=== PATIENT | female | born 1980 | race African-American/Black ===

== ENCOUNTER 2017-11-18 07:16 | Emergency (ER) | payer OTHER ==
[2017-11-18] MEDS ORDERED: LABETALOL HCL INJ 20 MG/4 ML DISP.SYRIN IV ONE (07:46)
--- NOTE | 2017-11-18 07:52 | ER Document Report ---
ED General - General Mode of Arrival: Ambulatory Information source: Patient TRAVEL OUTSIDE OF THE [place] IN LAST 30 DAYS: No <CHRISTINA FUNEZ - Last Filed: 11/18/17 08:09> <CHELLE MARTIN - Last Filed: 11/18/17 10:54> - General Chief Complaint: Blood Pressure Problem Stated Complaint: NOSE BLEED Time Seen by Provider: 11/18/17 07:38 Notes: Patient is a 37 year old female, currently 12 weeks with HTN and a history of nose bleeds presents to the emergency department complaining of a nose bleed onset this morning. Patient states she woke up around 0630 and noticed blood coming out of the right nostril. She suspected her blood pressure was high due to having similar episodes in the past when her blood pressure was high. She states she did not take her blood pressure medication and proceeded to come straight to the ED. Patient is currently prescribed Labetalol, 800 mg twice daily. She states she was previously prescribed Hydralazine was told to discontinue 1 month ago due to . (CHRISTINA FUNEZ) - Related Data Allergies/Adverse Reactions: No Known Allergies Allergy (Verified 11/18/17 07:17) Past Medical History - General Information source: Patient - Social History Smoking Status: Never Smoker Cigarette use (# per day): No Chew tobacco use (# tins/day): No Smoking Education Provided: No Frequency of alcohol use: None Family History: Reviewed & Not Pertinent - Past Medical History Cardiac Medical History: Reports: Hx Hypertension Past Surgical History: Reports: Hx Section, Other - reports surgery under her to remove a mass. <CHRISTINA FUNEZ - Last Filed: 11/18/17 08:09> Review of Systems - Review of Systems Constitutional: No symptoms reported EENT: See HPI Cardiovascular: No symptoms reported Respiratory: No symptoms reported Gastrointestinal: No symptoms reported Genitourinary: No symptoms reported Female Genitourinary: No symptoms reported Musculoskeletal: No symptoms reported Skin: No symptoms reported Hematologic/Lymphatic: See HPI Neurological/Psychological: No symptoms reported -: Yes All other systems reviewed and negative <CHRISTINA FUNEZ - Last Filed: 11/18/17 08:09> Physical Exam <CHRISTINA FUNEZ - Last Filed: 11/18/17 08:09> <CHELLE MARTIN - Last Filed: 11/18/17 10:54> - Vital signs Vitals: Temp Pulse Resp BP Pulse Ox 98.4 F 84 18 204/111 H 98 11/18/17 07:21 11/18/17 07:21 11/18/17 07:21 11/18/17 07:21 11/18/17 07:21 - Notes Notes: GENERAL: Alert, interacts well. No acute distress. HEAD: Normocephalic, atraumatic. EYES: Pupils equal, round, and reactive to light. Extraocular movements intact. ENT: Oral mucosa moist, tongue midline. Clot and fresh blood in the right nostril, not actively bleeding. NECK: Full range of motion. Supple. Trachea midline. LUNGS: Clear to auscultation bilaterally, no wheezes, rales, or rhonchi. No respiratory distress. HEART: Regular rate and rhythm. No murmurs, gallops, or rubs. ABDOMEN: Soft, non-tender. Non-distended. Bowel sounds present in all 4 quadrants. EXTREMITIES: Moves all 4 extremities spontaneously. NEUROLOGICAL: Alert and oriented x3. Normal speech. PSYCH: Normal affect, normal mood. SKIN: Warm, dry, normal turgor. No rashes or lesions noted. (CHRISTINA FUNEZ) Course - Laboratory Result Diagrams: 11/18/17 07:52 11/18/17 07:52 <CHRISTINA FUNEZ - Last Filed: 11/18/17 08:09> - Laboratory Result Diagrams: 11/18/17 07:52 11/18/17 07:52 - Consults Dr. Ching Time consulted: 08:00 Consulted provider: other - Recommended using a Apresoline(hydralazine) for blood pressure control, as the hospital does not have any of the labetalol. <CHELLE MARTIN - Last Filed: 11/18/17 10:54> - Re-evaluation Re-evalutation: 11/18/17 10:32 PROCEDURE: Afrin nose spray was sprayed into the right nostril, then two Afrin-soaked cotton balls were placed in the right nostril. Cotton balls were removed about 1-1/2 hours after the replaced, because I wanted to let the blood pressure come down and stay down for a while. There was minimal blood staining noted on either cottonball, there is no active bleeding, there was no blood going down the back of her throat during this time. Blood pressure is trending back up and she will be given her morning dose of labetalol which she did not take at home today. She will be reevaluated after the labetalol has been in for 30-45 minutes. (CHELLE MARTIN) - Vital Signs Vital signs: Temp Pulse Resp BP Pulse Ox 98.4 F 84 26 H 181/103 H 98 11/18/17 07:21 11/18/17 07:21 11/18/17 09:13 11/18/17 09:13 11/18/17 09:13 - Laboratory Laboratory results interpreted by sc: 11/18/17 07:52 Hgb 11.5 L Hct 32.8 L Discharge <CHRISTINA FUNEZ - Last Filed: 11/18/17 08:09> <CHELLE MARTIN - Last Filed: 11/18/17 10:54> - Discharge Clinical Impression: Anterior epistaxis, with 12 completed weeks gestation High blood pressure Qualifiers: Hypertension type: essential hypertension Qualified Code(s): I10 - Essential ( primary) hypertension Condition: Stable Disposition: HOME, SELF-CARE Additional Instructions: Nosebleed Instructions There is a significant chance of re-bleeding following a nosebleed. Proper care makes this less likely. Do not touch the nose for 24 hours. Do not blow the nose forcefully for one week. Gently apply Vaseline ointment to both nostrils with the tip of a finger, three times a day, for one week. It's normal to have a bloody mucous discharge for a few days. If active bleeding recurs, blow all the blood from the nose, then use the Afrin nose spray into the bleeding side, then placed an Afrin-soaked cotton ball into the bleeding nostril. Then sit quietly and pinch the nose as firmly as possible for 10 minutes. If this does not stop the bleeding, return for further care. If this does stop the bleeding, then remove the cotton ball after about 1 hour. Persons with frequent nosebleeds should avoid aspirin (unless prescribed for another reason). Humidity in the bedroom, and petroleum jelly applied to the nostrils at night may help. Your blood pressure was quite high today. You should check your blood pressure before you take your medicine in the morning and the evening to see if it is being controlled for the full 12 hours after a dose of medicine. You were given your morning dose of labetalol and the urgency room. Check your pressure later this afternoon to be sure it is staying controlled. Follow-up with your doctor if your pressure continues to run high. Follow-up with a local ear nose and throat doctor if you continue to have nosebleeds. RETURN TO THE EMERGENCY ROOM IF ANY NEW OR WORSENING SYMPTOMS. Referrals: [facility] [Provider Group] - Follow up as needed Scribe Attestation: 11/18/17 10:54 I personally performed the services described in the documentation, reviewed and edited the documentation which was dictated to the scribe in my presence, and it accurately records my words and actions. (CHELLE MARTIN) Scribe Documentation - Scribe Written by Scribe:: José Miguel Castillo, 11/18/2017 07:54 acting as scribe for :: Volodymyr <CHRISTINA FUNEZ - Last Filed: 11/18/17 08:09>
[2017-11-18] MEDS ORDERED: OXYMETAZOLINE HCL 0.05% NASAL SPRAY 15 ML BOTTLE NASL ONE (07:55)
[2017-11-18] MEDS ORDERED: HYDRALAZINE HCL INJ/PF 20 MG/1 ML SDV IV ONE (08:03)
[2017-11-18 08:16] LABS: ABSOLUTE BASOPHILS # (AUTO) 0.1 10^3/uL (0.0-0.2); ABSOLUTE EOSINOPHILS # (AUTO) 0.3 10^3/uL (0.0-0.6); ABSOLUTE MONOCYTES (AUTO) 0.7 10^3/uL (0.1-1.4); ABSOLUTE NEUT (AUTO) 5.7 10^3/uL (1.7-8.2); BASOPHILS % (AUTO) 0.7 % (0-2); HEMATOCRIT 32.8 % (36.0-47.0); HEMOGLOBIN 11.5 g/dL (12.0-15.5); LYMPHOCYTES % (AUTO) 23.1 % (13-45); MEAN CORPUSCULAR HEMOGLOBIN 30.9 pg (27.0-33.4); MEAN CORPUSCULAR HGB CONC 35.1 g/dL (32.0-36.0); MEAN CORPUSCULAR VOLUME 88 fl (80-97); MONOCYTES % (AUTO) 7.7 % (3-13); PLATELET COUNT 258 10^3/uL (150-450); RED BLOOD COUNT 3.73 10^6/uL (3.72-5.28); SEGMENTED NEUTROPHILS % (AUTO) 65.5 % (42-78); TOTAL CELLS COUNTED % (AUTO) 100 %; WHITE BLOOD COUNT 8.7 10^3/uL (4.0-10.5)
[2017-11-18 08:23] LABS: ALANINE AMINOTRANSFERASE 33 U/L (9-52); ALBUMIN 3.5 g/dL (3.5-5.0); ALKALINE PHOSPHATASE 63 U/L (38-126); ANION GAP 12 (5-19); ASPARTATE AMINO TRANSFERASE 19 U/L (14-36); BILIRUBIN,DIRECT 0.2 mg/dL (0.0-0.4); BILIRUBIN,TOTAL 0.3 mg/dL (0.2-1.3); BLOOD UREA NITROGEN 8 mg/dL (7-20); CALCIUM 9.8 mg/dL (8.4-10.2); CARBON DIOXIDE 26 mmol/L (22-30); CHLORIDE 102 mmol/L (98-107); GLUCOSE 95 mg/dL (75-110); SODIUM 140.3 mmol/L (137-145); TOTAL PROTEIN 7.1 g/dL (6.3-8.2)
[2017-11-18] MEDS ORDERED: LABETALOL HCL 200 MG TABLET PO ONE (10:24)
[2017-11-18 11:57] VITALS: BP 177/117
== END 2017-11-18 11:57 | disposition home or self-care (01) ==
LOC: ER 07:16
PROC: 2Y41X5Z Packing of Nasal Region using Packing Material (ICD-10-PCS; principal; 2017-11-18)
DX: O16.1 Unspecified maternal hypertension, first trimester (principal); R04.0 Epistaxis; Z3A.12 12 weeks gestation of pregnancy; Z79.899 Other long term (current) drug therapy
CPT/HCPCS: 99283; 96374; 36415; 83735; 85025; 80053; 30901; J0360; J3490

== ENCOUNTER 2018-04-07 08:31 | Emergency (ER) | payer OTHER, MEDICAID ==
[2018-04-07 08:43] VITALS: BP 145/80
--- NOTE | 2018-04-07 09:09 | ER Document Report ---
ED General - General Chief Complaint: Abdominal Pain Stated Complaint: ABDOMINAL PAIN Time Seen by Provider: 04/07/18 08:53 Mode of Arrival: Wheelchair Information source: Patient Notes: Patient is a 37-year-old female who presents to the emergency department with chief complaint of generalized abdominal pain with bilateral flank pain. Patient reports the pain started last night and is intermittent. Patient denies any vaginal bleeding or discharge. Patient was initially registered to the emergency department as the triage nurse did not know the patient was 7 months . Patient is a . She has a history of labor. TRAVEL OUTSIDE OF THE [place] IN LAST 30 DAYS: No - Related Data Allergies/Adverse Reactions: No Known Allergies Allergy (Verified 04/07/18 08:32) Past Medical History - General Information source: Patient - Social History Smoking Status: Never Smoker Frequency of alcohol use: None Drug Abuse: None Family History: Reviewed & Not Pertinent - Past Medical History Cardiac Medical History: Reports: Hx Hypertension Renal/ Medical History: Denies: Hx Peritoneal Dialysis Past Surgical History: Reports: Hx Abdominal Surgery, Hx Section, Other - reports surgery under her to remove a mass. Review of Systems - Review of Systems Constitutional: No symptoms reported EENT: No symptoms reported Cardiovascular: No symptoms reported Respiratory: No symptoms reported Gastrointestinal: Abdominal pain, Vomiting - x1 Genitourinary: No symptoms reported Female Genitourinary: Musculoskeletal: No symptoms reported Skin: No symptoms reported Physical Exam - Vital signs Vitals: Temp Pulse Resp BP Pulse Ox 98.6 F 84 20 145/80 H 97 04/07/18 08:40 04/07/18 08:40 04/07/18 08:40 04/07/18 08:40 04/07/18 08:40 - Notes Notes: PHYSICAL EXAMINATION: GENERAL: Well-appearing, well-nourished and in no acute distress. HEAD: Atraumatic, normocephalic. EYES: Pupils equal round extraocular movements intact, conjunctiva are normal. ENT: Nares patent NECK: Normal range of motion LUNGS: No respiratory distress Abdomen: Gravid abdomen Musculoskeletal: Normal range of motion NEUROLOGICAL: Normal speech, normal gait. PSYCH: Normal mood, normal affect. SKIN: Warm, Dry, normal turgor, no rashes or lesions noted. Course - Re-evaluation Re-evalutation: 12/30/18 09:04 Patient was evaluated briefly in the emergency department and found to have intermittent abdominal pain. heart tones were obtained and were 148bpm. Patient does appear to be having contractions approximately 5-6 minutes apart. Patient denies the urge to push and is stable for transport upstairs. Nurse called report to labor and delivery. Patient has no other acute complaints today and will be sent to labor and delivery. - Vital Signs Vital signs: Temp Pulse Resp BP Pulse Ox 98.6 F 84 20 145/80 H 97 04/07/18 08:40 04/07/18 08:40 04/07/18 08:40 04/07/18 08:40 04/07/18 08:40 Discharge - Discharge Clinical Impression: Qualifiers: Weeks of gestation: 28 weeks Qualified Code(s): Z3A.28 - 28 weeks gestation of Abdominal pain Qualifiers: Abdominal location: generalized Qualified Code(s): R10.84 - Generalized abdominal pain Condition: Stable Disposition: HOME, SELF-CARE Additional Instructions: Please proceed immediately to labor and delivery. Our ER staff will accompany you.
== END 2018-04-07 09:17 | disposition admitted as inpatient to this hospital (09) ==
LOC: ER 08:31
DX: O26.93 Pregnancy related conditions, unspecified, third trimester (principal); R10.84 Generalized abdominal pain; R11.10 Vomiting, unspecified; I10 Essential (primary) hypertension; Z3A.28 28 weeks gestation of pregnancy

== ENCOUNTER 2018-04-07 09:09 | Outpatient (CLI) | payer OTHER, MEDICAID ==
[2018-04-07] MEDS ORDERED: RINGERS SOLUTION,LACTATED 1,000 ML IV PRN (10:06)
--- NOTE | 2018-04-07 11:02 | RADIOLOGY REPORT (SQ) ---
EXAM DESCRIPTION: U/S OB LIMITED COMPLETED DATE/TIME: 04/07/2018 10:48 am REASON FOR STUDY: CERVICAL LENGTH COMPARISON: None. TECHNIQUE: Limited transabdominal grayscale ultrasound for evaluation of specific requested obstetri freeman parameters. LIMITATIONS: None. FINDINGS: CERVICAL LENGTH: 2.7 cm. Closed. LENNOX: not assessed cm. FHR: 141 beats per minute. PRESENTATION: Cephalic. PLACENTA: Anterior without evidence of abruption or previa. ANATOMY: Not assessed OTHER: No other significant findings. IMPRESSION: LIMITED OBSTETRICAL ULTRASOUND WITH MEASURED PARAMETERS DELINEATED ABOVE. Trimester of : Third trimester - 28 weeks to delivery. TECHNICAL DOCUMENTATION: JOB ID: [id number] [employer]- All Rights Reserved Reading location - IP/workstation name: [email or web address]
[2018-04-07 11:32] LABS: APPEARANCE,URINE SLIGHTLY-CLOUDY; BILIRUBIN,URINE NEGATIVE (NEGATIVE); COLOR,URINE YELLOW; GLUCOSE, URINE NEGATIVE (NEGATIVE); KETONES,URINE NEGATIVE (NEGATIVE); LEUKOCYTE ESTERASE,URINE LARGE (NEGATIVE); NITRITE,URINE NEGATIVE (NEGATIVE); PROTEIN,URINE NEGATIVE (NEGATIVE); URINE SPECIFIC GRAVITY 1.015
[2018-04-07 11:48] LABS: URINE AMPHETAMINES SCREEN NEGATIVE; URINE BARBITURATES SCREEN NEGATIVE; URINE BENZODIAZEPINES SCREEN NEGATIVE; URINE COCAINE SCREEN NEGATIVE; URINE MARIJUANA (THC) SCREEN NEGATIVE; URINE METHADONE SCREEN NEGATIVE; URINE PHENCYCLIDINE SCREEN NEGATIVE
== END 2018-04-07 12:24 | disposition home or self-care (01) ==
LOC: LC 09:09
PROVIDERS: ATTEND Obstetrics & Gynecology
PROC: 4A1HXCZ Monitoring of Products of Conception, Cardiac Rate, External Approach (ICD-10-PCS; principal; 2018-04-07)
DX: O47.03 False labor before 37 completed weeks of gestation, third trimester (principal); Z3A.31 31 weeks gestation of pregnancy
CPT/HCPCS: 76815; 80307; 81001